=== PATIENT | male | born 1955 | race Caucasian/White ===

== ENCOUNTER 2017-01-16 11:03 | Emergency (ER) | payer OTHER ==
[2017-01-16 11:09] VITALS: RESP 16; TEMP 97.7
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
[2017-01-16] MEDS ORDERED: LET GEL TOPICAL 1 EA SYR TP ONE (11:21)
[2017-01-16] MEDS ORDERED: SKIN ADHESIVE (DERMABOND) 1 EACH TP ONE (12:06)
[2017-01-16 13:22] VITALS: BP 113/78; PULSE 62; O2SAT 97
== END 2017-01-16 13:23 | disposition home or self-care (01) ==
PROC: 0HQ1XZZ Repair Face Skin, External Approach (ICD-10-PCS; principal; 2017-01-16)
DX: S01.112A Laceration without foreign body of left eyelid and periocular area, initial encounter (principal); S43.492A Other sprain of left shoulder joint, initial encounter; S40.212A Abrasion of left shoulder, initial encounter; V18.4XXA Pedal cycle driver injured in noncollision transport accident in traffic accident, initial encounter; Y92.410 Unspecified street and highway as the place of occurrence of the external cause; Y99.8 Other external cause status; Y93.55 Activity, bike riding

== ENCOUNTER → 2017-05-09 | Outpatient (CLI) | payer OTHER | LOC: FIMAGING 16:36 | PROVIDERS: ATTEND Orthopaedic Surgery | DX: Z09 Encounter for follow-up examination after completed treatment for conditions other than malignant neoplasm (principal); Z96.652 Presence of left artificial knee joint; M25.562 Pain in left knee; M79.89 Other specified soft tissue disorders ==